=== PATIENT | female | born 1965 | race Caucasian/White ===

== ENCOUNTER 2016-08-23 22:15 | Emergency (ER) | payer OTHER ==
[~2016-08-23] VITALS: Ht 167.6 cm; Wt 68.0 kg
[~2016-08-23 22:15] MED LIST: IBUPROFEN 200200 M1 PO
[2016-08-23 22:17] VITALS: BP 185/105
[2016-08-23] MEDS ORDERED: VENTOLIN HFA 1818 GM INH (22:24)
[2016-08-23] MEDS ORDERED: EPIPEN 2-P0.3 MG/0.3 IM (22:39)
== END 2016-08-23 23:01 | disposition home or self-care (01) ==
LOC: ER 22:15
DX: S10.96XA Insect bite of unspecified part of neck, initial encounter (principal); S30.860A Insect bite (nonvenomous) of lower back and pelvis, initial encounter; S30.861A Insect bite (nonvenomous) of abdominal wall, initial encounter; M79.7 Fibromyalgia; Z90.89 Acquired absence of other organs; Z88.6 Allergy status to analgesic agent; Z88.5 Allergy status to narcotic agent; F17.210 Nicotine dependence, cigarettes, uncomplicated; T78.49XA Other allergy, initial encounter; W57.XXXA Bitten or stung by nonvenomous insect and other nonvenomous arthropods, initial encounter

== ENCOUNTER 2016-09-24 22:15 | Emergency (ER) | payer OTHER ==
[~2016-09-24] VITALS: Ht 170.2 cm; Wt 72.6 kg
[~2016-09-24 22:15] MED LIST changes: +EPIPEN 2-P0.3 MG/0.3 IM; +VENTOLIN HFA 1818 GM INH
[2016-09-24 22:57] LABS: ABSOLUTE NEUTROPHILS 3.4 thou/uL (1.4-8.2); BASOPHILS 0.8 % (0.0-2.0); EOSINOPHILS 5.1 % (0.0-3.0); HEMATOCRIT 42.8 % (37.0-47.0); HEMOGLOBIN 14.4 gm/dL (12.0-15.0); LYMPHOCYTES 37.5 % (24.0-44.0); MCH 29.2 pg (26.0-34.0); MCHC 33.7 g/dL (28.0-37.0); MCV 86.6 fL (80.0-100.0); MONOCYTES 7.7 % (1.0-8.0); PLATELET COUNT 291 thou/uL (150-400); POLYS 48.9 % (36.0-66.0); RBC 4.95 mil/uL (4.20-5.00); RDW 13.5 % (10.5-14.5); WBC 6.9 thou/uL (4.0-11.0)
[2016-09-24 23:09] LABS: MANUAL DIFF NO
[2016-09-24 23:11] LABS: CALCIUM 8.9 mg/dL (8.5-10.1); CREATININE 0.8 mg/dL (0.6-1.0); POTASSIUM 3.8 mmol/L (3.5-5.1)
[2016-09-24] MEDS ORDERED: BACTRIM DS TAB1 EACH PO (23:40)
[2016-09-25 00:24] VITALS: BP 149/96
== END 2016-09-24 23:43 | disposition home or self-care (01) ==
LOC: ER 22:15
PROVIDERS: Emergency Medicine
DX: S50.862A Insect bite (nonvenomous) of left forearm, initial encounter (principal); F17.210 Nicotine dependence, cigarettes, uncomplicated; Z98.890 Other specified postprocedural states; Z88.6 Allergy status to analgesic agent; Z88.5 Allergy status to narcotic agent; W57.XXXA Bitten or stung by nonvenomous insect and other nonvenomous arthropods, initial encounter; Y93.89 Activity, other specified; Y92.89 Other specified places as the place of occurrence of the external cause; Y99.8 Other external cause status